=== PATIENT | male | born 1960 | race Hispanic/Latino ===

== ENCOUNTER 2016-07-19 12:22 | Emergency (ER) | payer OTHER ==
[~2016-07-19] VITALS: Ht 165.1 cm; Wt 90.0 kg
[~2016-07-19 12:22] MED LIST: KEFLEX500 M1 PO; LOSARTAN POTASS50 MG PO; LOVASTATIN20 MG PO; PRILOSEC40 MG PO; ZESTRIL10 MG PO; ZYLOPRIM100 MG PO
[2016-07-19 13:12] LABS: HEMATOCRIT 43.7 % (39.0-50.0); HEMOGLOBIN 14.7 g/dl (14.0-18.0); IMMATURE GRANULOCYTES 0.5 % (0.0-1.0); MEAN CELL VOLUME 98.6 fL CALC (80.0-100.0); MEAN CORPUSCULAR HGB 33.2 pG CALC (26.0-32.0); MEAN CORPUSCULAR HGB CONC 33.6 g/L CALC (32.0-36.0); NEUT# 7.41 thou/uL (1.82-7.42); RED BLOOD COUNT 4.43 mill/uL (4.70-6.10); RED CELL DISTRI WIDTH 12.9 % (11.5-15.5)
[2016-07-19 13:21] LABS: ALBUMIN 4.8 g/dL (3.2-5.0); ALKALINE PHOSPHATASE 90 u/l (38-126); AMYLASE 110 u/l (30-110); ANION GAP 18 (6-22 (CALC)); BILIRUBIN, TOTAL 0.5 mg/dL (0.0-1.4); BUN 25 mg/dL (9-20); BUN/CREATININE RATIO 21 (12-20 (CALC)); CALCIUM 9.8 mg/dL (8.4-10.2); CARBON DIOXIDE 24 mmol/l (22-30); CHLORIDE 103 mmol/l (95-108); CREATININE 1.2 mg/dL (0.7-1.3); GFR > 60 ML/MIN (>=60 (CALC)); GFR FOR AFR.AMER. > 60 ML/MIN (>=60 (CALC)); GLUCOSE 118 mg/dL (75-110); LIPASE 167 u/l (23-300); POTASSIUM 4.4 mmol/l (3.5-5.1); SGOT/AST 63 u/l (17-59); SGPT/ALT 74 u/l (21-72); SODIUM 141 mmol/l (137-146); TOTAL PROTEIN 8.8 g/dL (6.3-8.2)
[2016-07-19 13:32] LABS: MYOGLOBIN 129 ng/mL (0 - 121)
[2016-07-19 13:36] LABS: URINE BILIRUBIN - DIPSTICK NEGATIVE (NEGATIVE); URINE BLOOD DIPSTICK NEGATIVE (NEGATIVE); URINE CLARITY CLEAR; URINE COLOR YELLOW; URINE GLUCOSE - DIPSTICK NEGATIVE (NEGATIVE); URINE KETONE NEGATIVE (NEGATIVE); URINE LEUK ESTERASE NEGATIVE (NEGATIVE); URINE NITRITE - DIPSTICK NEGATIVE (Negative); URINE PROTEIN - DIPSTICK NEGATIVE (NEG-TRACE); URINE SPECIFIC GRAVITY 1.025; URINE UROBILINOGEN - DIPSTICK 0.2 E.U./dL (0.2)
[2016-07-19 19:09] VITALS: BP 134/96
== END 2016-07-19 19:30 | disposition short-term general hospital (02) | DRG 390 ==
LOC: ED 12:22
PROVIDERS: Emergency Medicine
DX: K56.60 Unspecified intestinal obstruction (principal); R10.9 Unspecified abdominal pain

== ENCOUNTER 2020-11-27 10:50 | Emergency (ER) | payer OTHER ==
[~2020-11-27] VITALS: Ht 165.1 cm; Wt 77.1 kg
[2020-11-27] MEDS ORDERED: COZAAR50 MG PO (13:11)
[2020-11-27] MEDS ORDERED: METFORMIN HCL500 M1 PO (13:11)
[2020-11-27] MEDS ORDERED: ALTOPREV40 MG PO (13:11)
[2020-11-27] MEDS ORDERED: ALLOPURINOL100 MG PO (13:11)
[2020-11-27] MEDS ORDERED: BRIMONIDINE0.2 % OU (13:12)
[2020-11-27 13:15] VITALS: BP 142/75
== END 2020-11-27 13:15 | disposition home or self-care (01) | DRG 866 ==
LOC: ED 10:50
DX: B34.9 Viral infection, unspecified (principal); Z20.822 Contact with and (suspected) exposure to COVID-19

== ENCOUNTER → 2020-12-07 | Outpatient (REF) | payer OTHER ==
[~2020-12-07] MED LIST changes: +ALLOPURINOL100 MG PO; +ALTOPREV40 MG PO; +BRIMONIDINE0.2 % OU; +COZAAR50 MG PO; +METFORMIN HCL500 M1 PO
== END | disposition home or self-care (01) | DRG 951 ==
LOC: LAB 08:40
PROVIDERS: ATTEND Physician Assistant
DX: Z20.822 Contact with and (suspected) exposure to COVID-19 (principal)